=== PATIENT | male | born 1950 | race Caucasian/White ===

== ENCOUNTER 2016-10-12 07:36 | Emergency (ER) | payer OTHER ==
[~2016-10-12] VITALS: Ht 175.3 cm; Wt 127.7 kg
[~2016-10-12 07:36] MED LIST: ATORVASTATIN CA20 MG PO; BACLOFEN10 MG PO; BACTRIM,SEPT1 TABLET PO; BAYER CHEWABLE81 MG PO; BETAINE HCL300 MG PO; CALTRATE PLUS1 EACH PO; COLACE100 MG PO; CRANBERRY405 MG PO; EXELON PATCH4.6 MG TD; FERROUS SULFAT325 MG PO; FLOMAX0.4 MG PO; LEXAPRO20 MG PO; LISINOPRIL10 MG PO; LORATADINE10 M2 PO; LYRICA150 MG PO; MIRALAX17 GM PO; MS CONTIN,ORAMO30 MG PO; PERCOCET 5/31 TABLET PO; PRILOSEC40 MG PO; PROVENTIL2.5 MG/3 M IH; SENNA LAX8.6 MG PO; TRENTAL400 MG PO; XANAX0.25 MG PO; ZANTAC150 MG PO
[2016-10-12 09:55] LABS: ADD MIUA? NO; BILIRUBIN NEGATIVE; BLOOD NEGATIVE; COLOR YELLOW ((YELLOW)); GLUCOSE (STRIP) NEGATIVE; KETONES NEGATIVE; LEUKOCYTES NEGATIVE; NITRITE NEGATIVE; PH, URINE 6.5 (5-8); PROTEIN (STRIP) NEGATIVE; SPECIFIC GRAVITY 1.014 (1.000-1.030); UCUL ADDED? NO; UROBILINOGEN 0.2 MG/DL (0.2-1.0)
[2016-10-12 12:06] VITALS: BP 138/72
== END 2016-10-12 12:13 ==
LOC: EME 07:36
PROVIDERS: Emergency Medicine
DX: S32.019A Unspecified fracture of first lumbar vertebra, initial encounter for closed fracture (principal); W18.30XA Fall on same level, unspecified, initial encounter; G47.30 Sleep apnea, unspecified; J44.9 Chronic obstructive pulmonary disease, unspecified; E11.9 Type 2 diabetes mellitus without complications; G35 Multiple sclerosis; F17.200 Nicotine dependence, unspecified, uncomplicated
CPT/HCPCS: 72131; 81003; 99281; 99285; J1170; J1885